=== PATIENT | female | born 2000 | race Caucasian/White ===

== ENCOUNTER 2023-10-15 18:01 | Emergency (ER) | payer BC, SELFPAY ==
[2023-10-15 18:24] VITALS: BP 112/73; PULSE 87; RESP 20; TEMP 37.1; O2SAT 98; BMI 22.0
--- NOTE | 2023-10-15 19:15 | ED.GENADULT ---
HPI - General Adult General Chief complaint: Cough Stated complaint: possible flu, 37 wks Time Seen by Provider: 10/15/23 19:15 History of Present Illness HPI narrative: Patient reports symptoms of: headache, body aches, sore throat, congestion, earache and chills and sweats. Symptoms started yesterday. 23-year-old woman presenting to the emergency department at 37 weeks of with concern of possible flu. Symptoms started yesterday. She has been experiencing headache and myalgias. Some sore throat. Congested. Chills and feeling hot. No dysuria. New shortness of breath. She is not having abdominal pain. No vaginal bleeding. Experiencing nausea. Related Data Allergies Allergy/AdvReac Type Severity Reaction Status Date / Time No Known Drug Allergies Allergy Verified 10/15/23 18:23 Review of Systems Status of ROS: Reports: 6 or more systems reviewed and unremarkable except as noted in History and below Exam Narrative: Exam Narrative: Pleasant. Looks a little uncomfortable. Smiles wryly. Sounds congested in the nasopharynx. No facial swelling or erythema no tenderness. TMs are full but not not particularly inflamed; no bacterial infection. Oropharynx is moist. Mildly erythematous in the posterior oropharynx. No cervical lymphadenopathy. Lungs are clear. Heart in regular rate and rhythm. Abdomen is soft and appropriately gravid. Nontender. Extremities are well perfused. No pitting edema. Const: Vital Signs, click to edit/add: Vital Signs - 24 hr 10/15/23 18:24 Temperature 98.8 F Pulse Rate [Pulse Oximeter] 87 Respiratory Rate 20 Blood Pressure [Ri ght Upper Arm] 112/73 Pulse Oximetry 98 Oxygen Delivery Me thod Room Air Documenting provider has reviewed patient's vital signs: yes Course Vital Signs Vital signs: Initial Vital Signs Temperature 98.8 F 10/15/23 18:24 Temperature Source Temporal Artery Scan 10/15/23 18:24 Pulse Rate 87 10/15/23 18:24 Respiratory Rate 20 10/15/23 18:24 Blood Pressure 112/73 10/15/23 18:24 Blood Pressure Mean 86 10/15/23 18:24 Pulse Oximetry 98 10/15/23 18:24 Oxygen Delivery Method Room Air 10/15/23 18:24 Vital Signs Temperature 98.8 F 10/15/23 18:24 Pulse Rate 87 10/15/23 18:24 Respiratory Rate 20 10/15/23 18:24 Blood Pressure 112/73 10/15/23 18:24 Pulse Oximetry 98 10/15/23 18:24 Oxygen Delivery Method Room Air 10/15/23 18:24 Temperature 98.8 F 10/15/23 18:24 Pulse Rate 87 10/15/23 18:24 Respiratory Rate 20 10/15/23 18:24 Blood Pressure 112/73 10/15/23 18:24 Pulse Oximetry 98 10/15/23 18:24 Oxygen Delivery Method Room Air 10/15/23 18:24 Medical Decision Making MDM Narrative Medical decision making narrative: Symptoms do seem consistent with influenza like illness. Would screen for this and COVID. Otherwise does not seem unwell with normal vitals. Does not feel needs any treatment otherwise. Swab and indeed positive for influenza type A Would offer Tamiflu for this. Is still within 48 hours of illness and furthermore with be prudent to treat. See patient discharge plan for further discussion Medical Records Medical records reviewed: Yes I reviewed the patient's medical records Lab Data Lab results reviewed: Yes I reviewed the patient's lab results Labs: Lab Results 10/15/23 Range/Units 18:07 SARS-CoV-2 (PCR) Negative SARS-CoV-2 (Negative) Influenza Type A (PCR) POSITIVE PCR FLU A A (Negative) Influenza Type B (PCR) Negative PCR FLU B (Negative) RSV (PCR) Negative PCR RSV (Negative) Discharge Plan Discharge Clinical Impression: Influenza A Patient Disposition: Home w/ Parent or Adult Condition: Stable Additional Instructions: Focus on hydration. Can take up to 1000 mg of acetaminophen per dose. Review your list of medications in for permitted decongestants? I say this partly to help clear your ears. Menthol vapors might be helpful. Might try anesthetic throat lozenges or sprays like Sucrets or Chloraseptic. Return for persistent and increased shortness of breath, worsening chest pain. Tamiflu and Zofran from [facility]. Activity Level: No Restrictions Discharge Diet: Regular Follow Up/Referrals: Keily Valle MD [Staff Physician] - Stand Alone Forms: [facility] [place] Info Instructions
[2023-10-15 19:25] LABS: PCR FLU A POSITIVE PCR FLU A (Negative); PCR FLU B Negative PCR FLU B (Negative); PCR RSV Negative PCR RSV (Negative); SARS PCR* Negative SARS-CoV-2 (Negative)
== END 2023-10-15 20:17 | disposition home or self-care (01) ==
LOC: ED 20:14
PROVIDERS: Emergency Provider Family Medicine
DX: J09.X2 Influenza due to identified novel influenza A virus with other respiratory manifestations (principal); Z3A.37 37 weeks gestation of pregnancy
CPT/HCPCS: 87631; 99283; 99284